=== PATIENT | female | born 1975 | race Caucasian/White ===

== ENCOUNTER 2016-10-22 08:02 | Emergency (ER) | payer MEDICAID ==
[2016-10-22] MEDS ORDERED: ONDANSETRON 4 MG TAB.RAPDIS PO ONE (08:47)
[2016-10-22] MEDS ORDERED: KETOROLAC TROMETHAMINE 30 MG/ML VIAL IM ONE (08:47)
[2016-10-22] MEDS ORDERED: diphenhydrAMINE HCL 50 MG/ML VIAL IM ONE (08:48)
--- OUTSIDE RECORDS SUMMARY | 2016-10-22 08:48 | XMS REPORT | Continuity of Care Document ---
:1975 Author Organization [facility] ([facility]) Address [address] [place] [address] Phone [phone] Care Team Providers Name Role Phone MarianaleiRefugio villarreal Primary Care Provider [phone] Source Comments This disclosure is being made pursuant to the Care Everywhere program, applicable federal and state laws, and may not contain all informaitonavailable regarding this patient.[facility] ([facility]) Active Allergies and Adverse Reactions Allergen Noted Date Severity Reactions Comments Amoxicillin 01/13/2012 Nausea & Vomiting,Rash Weeks Flavor 01/13/2012 Nausea & Vomiting Methylprednisone 01/13/2012 Other Non-Immunologic [place] like she was Reaction having a heart attack. Current Medications Prescription Sig. Disp. Refills Start Date End Date Status MEDROXYPROGESTERONE ACET inject Active (DEPO-PROVERA IM) intramuscularly. Every 3 months.Due to have dose on 01/14/12. albuterol 90 Use 2 Puffs by Active mcg/Actuation inhaler inhalation every 6 hours as needed HYDROcodone-acetaminophen Take 1 tablet by 15 tablet 0 03/22/2015 Active 5-325 mg per tablet mouth every 4 hours as needed Active Problems Problem Noted Date Right wrist pain 03/26/2015 Fracture of fifth metacarpal bone of right hand 03/08/2015 Closed displaced fracture of distal phalanx of right little finger 03/08/2015 Esotropia 02/27/2015 Overview: 3 surgeries as child (one eye then the other then back to first eye)- Done in [facility] Always has been ET 03/22/15 RMRc 1.5 mm LMRc 2.5 mm;Posterior fixation sutures [facility] Last Assessment & Plan: Well healed Better alignement She will call if problems worsen She will get readers for near Otherwise will f/u with local eye care Distal radius fracture 09/06/2014 Idiopathic intracranial hypertension 01/13/2012 Last Assessment & Plan: No current signs of raised intracranial pressure Headache(784.0) 01/13/2012 Social History Tobacco Use Types Packs/Day Years Used Date Never Smoker Smokeless Tobacco: Never Used Alcohol Use Drinks/Week oz/Week Comments Yes 2 Cans of beer Occasional Last Filed Vital Signs Vital Sign Reading Time Taken Blood Pressure 118/77 03/22/2015 2:59 PM CDT Pulse 82 03/22/2015 9:46 AM CDT Temperature 37 C (98.6 F) 03/22/2015 2:15 PM CDT Respiratory Rate 14 03/22/2015 2:59 PM CDT Height 1.6 m (5' 2.99") 03/12/2015 2:31 PM CDT Weight 94.3 kg (207 lb 14.3 oz) 03/22/2015 9:46 AM CDT Body Mass Index 36.84 03/22/2015 9:46 AM CDT Oxygen Saturation 95% 03/22/2015 2:59 PM CDT Plan of Care Health Maintenance Due Date Last Done Comments Hepatitis B Vaccine (1 of 3 - Primary Series) 1975 Tdap Vaccine 02/01/1988 Lipid Disorder Screening 1995 MMR Vaccine 1995 Td Vaccine 1995 Cervical Cancer Screening 2007 Influenza Vaccine: Seasonal (#1) 02/25/2016 Results from Last 3 Months Not on file
[2016-10-22] MEDS ORDERED: KETOROLAC TROMETHAMINE 60 MG/2 ML VIAL IM ONE (08:51)
[2016-10-22] MEDS ORDERED: diphenhydrAMINE HCL 50 MG/ML VIAL ONE (08:51)
--- NOTE | 2016-10-22 08:51 | ERNOTE ---
Headache ER HPI - General Presenting Symptoms: headache Time Seen by Provider: 10/22/16 08:44 Source: patient - Immun/Allergies/Home Medications Immunizations: IMMUNIZATION HX Immunizations Up to Date Yes History of Influenza Vaccine No Hx Pneumococcal Vaccination No Allergies/Adverse Reactions: Allergies callahan flavor Allergy (Severe, Verified 10/22/16 08:13) Vomiting prednisone Allergy (Severe, Verified 10/22/16 08:13) chest pain amoxicillin [Amoxicillin] Allergy (Verified 10/22/16 08:13) methylprednisolone Allergy (Verified 10/22/16 08:13) Home Medications: HOME MEDICATIONS Medroxyprogesterone Acetate [Depo-Provera] 400 mg IM Q30D 10/22/16 [Last Taken Unknown] - History of Present Illness Timing of Headache: gradual, constant Quality: Present: throbbing Severity Maximum: Present: severe Severity-Currently: Present: severe Headache frequency: Present: frequent headaches, similar to previous headache Modifying Factors - (Improves): Reports: medication Associated Symptoms: Reports: nausea Review of Systems - Review of Systems Constitutional: Present: See HPI EYE: Present: no symptoms reported ENT: Present: no symptoms reported Respiratory: Present: no symptoms reported Cardiology: Present: no symptoms reported Gastrointestinal/Abdominal: Present: nausea Genitourinary: Present: no symptoms reported Musculoskeletal: Present: no symptoms reported Skin: Present: no symptoms reported Neurological: Present: headache Endocrine: Present: no symptoms reported Hematologic/Lymphatic: Present: no symptoms reported Psych: Present: no symptoms reported - Patient's Past Medical History Patient History - Medical: Anxiety, Bipolar, Migraines Patient History - Cardiac/Respiratory: No pertinent hx Patient History - Cancer: No Hx of Cancer Patient History - Surgical Procedures: Appendectomy, Cholecystectomy, D & C, Other Patient History - Other: None - Social History Living Situations: home Abuse History: No History of abuse Psych History: Hx of Anxiety, Hx of Depression, Hx of Bipolar Disorder Smoking Status: Never smoker Have you smoked in the past 12 months: No Alcohol Use: occasionally Drug Use: none - Immunizations Immunizations Up to Date: Yes Hx Pneumococcal Vaccination: No History of Influenza Vaccine: No Physical Exam - Physical Exam General Appearance: Present: wd/wn, alert, moderate distress Eye Exam: Normal inspection: bilateral, PERRL: bilateral Ears, Nose, Throat: Present: normal ENT inspection, H, normal pharynx Neck: Present: normal inspection, nontender Respiratory: Present: no respiratory distress, normal breath sounds, no accessory muscle use, chest nontender, lungs clear Cardiovascular/Chest: Present: regular rate, rhythm, no murmur, normal peripheral pulses Gastrointestinal/Abdominal: Present: normal bowel sounds, nontender, nondistended, soft, no organomegaly Rectal Exam: Present: deferred Back Exam: Present: normal inspection, normal range of motion Extremity Exam: Present: normal inspection, non-tender, no edema, normal range of motion Neurological Exam: Present: alert, oriented, normal mood/affect Skin Exam: Present: normal color, warm/dry Lymphatic Exam: Present: no adenopathy ED Progress - Vital Signs Patient's Vital Signs:: I have reviewed the patient's vital signs. Vital Signs: Vital Signs 10/22/16 08:09 Temperature 36.9 C Pulse Rate 91 Respiratory 12 Rate Blood Pressure 141/90 O2 Sat by Pulse 98 Oximetry - Progress/Reassessment Chief Complaint: Headache Progress:: Improved Plan - Plan Plan: Patient did mention that she had a spinal tap at sometime in the past for headaches however 1 I discussed with her about the possibility of this being pseudotumor cerebri she was unclear as to that terminology. He did have some discussions regarding the possibility of using other verapamil or propranolol for prophylactic care and she will discuss this with her family physician. Departure Clinical Impression: Migraine aura, persistent, intractable - Departure Disposition: Home self-care Condition: Good Instructions: Recurrent Migraine Headache, [id number] Referrals: Mae Dietrich FNP [Primary Care Provider] -
[2016-10-22] MEDS ORDERED: ONDANSETRON 4 MG TAB.RAPDIS ONE (08:52)
[2016-10-22 11:32] VITALS: BP 146/102
== END 2016-10-22 11:32 | disposition home or self-care (01) ==
LOC: ER 08:02
DX: G43.519 Persistent migraine aura without cerebral infarction, intractable, without status migrainosus (principal)

== ENCOUNTER 2017-03-17 16:29 | Emergency (ER) | payer MEDICAID ==
[2017-03-17 17:02] VITALS: BP 117/83
[2017-03-17] MEDS ORDERED: KETOROLAC TROMETHAMINE 30 MG/ML VIAL IM ONE (17:12)
[2017-03-17] MEDS ORDERED: KETOROLAC TROMETHAMINE 30 MG/ML VIAL ONE (17:16)
[2017-03-17 17:31] LABS: Urine Bilirubin Negative (NEGATIVE); Urine Blood Negative /ul (NEGATIVE); Urine Ketone Negative (NEGATIVE); Urine Nitrite Negative (NEGATIVE); Urine Protein Negative (NEGATIVE); Urine Specific Gravity 1.015 SP.GR. (1.005-1.010); Urine Urobilinogen Normal (NORMAL); Urine pH 6.5 pH (5.0-7.0)
[2017-03-17 17:44] LABS: Urine Appearance Clear; Urine Color Yellow; Urine RBC None Seen /hpf (0-5); Urine WBC None Seen /hpf (0-5)
[2017-03-17 17:45] LABS: Urine Bacteria 1+
--- NOTE | 2017-03-17 18:08 | ERNOTE ---
Back Pain ER HPI Date of Service: 03/17/17 Presenting Symptoms: other - back pain Time Seen by Provider: 03/17/17 17:05 Source: patient Exam Limitations: no limitations Immunizations: IMMUNIZATION HX Immunizations Up to Date Yes History of Influenza Vaccine Yes Hx Pneumococcal Vaccination Yes Allergies/Adverse Reactions: Allergies callahan flavor Allergy (Severe, Verified 03/17/17 17:02) Vomiting prednisone Allergy (Severe, Verified 03/17/17 17:02) chest pain amoxicillin [Amoxicillin] Allergy (Verified 03/17/17 17:02) methylprednisolone Allergy (Verified 03/17/17 17:02) Home Medications: HOME MEDICATIONS Medroxyprogesterone Acetate [Depo-Provera] 400 mg IM Q30D 10/22/16 [Last Taken Unknown] Cyclobenzaprine HCl [Flexeril] 10 mg PO TID PRN #20 tab 03/17/17 [Last Taken Unknown] HYDROcodone/ACETAMINOPHEN [Shiro 5-325] 1 tab PO Q6H PRN #15 tab 03/17/17 [Last Taken Unknown] Narrative: Patient presents to the ED for low back pain. She relates chronic Sx since an accident when she was a teen. She relates that this pain is radiating across her low back right and left. No localizing midline pain. This is exactly like what she has had before but more intense. No fever. No acute N/T/W but occaionaaly she will have some tingling in her feet, not limited to this episode. No falls or trauma. She states the pain is spasm-like and it hurts for her to move and walk. She was walking slow today because of the pain. She did not lose bowel or bladder control but did urinate on herself because she could not get to the bathroom in time becase the pain in her back was slowing her down. No focal N/T/W. No other Sx. This is just liek prior back pains she has had. Going on for the last 2 days Timing: Reports: constant Quality/Severity: Reports: severe Location of pain: Reports: lower back, no radiation. Denies: radiating to rt thigh/leg, radiating to lf thigh/leg Possible Precipitating Factor: Denies: trauma Modifying Factors - (Improves): Reports: other - rest Modifying Factors - (Worsens): Reports: movement to right, movement to left, movement flexion Associated Symptoms: Denies: fever/chills, constipation/incontinence, nausea/ vomiting, problems urinating, numbess/weakness in legs Prior Treament: Denies: recently seen Review of Systems - Review of Systems Constitutional: Absent: fever Respiratory: Absent: shortness of breath Cardiology: Absent: chest pain Gastrointestinal/Abdominal: Absent: abdominal pain Neurological: Absent: weakness - Patient's Past Medical History Patient History - Medical: Anxiety, Bipolar, Migraines Patient History - Cardiac/Respiratory: No pertinent hx Patient History - Cancer: No Hx of Cancer Patient History - Surgical Procedures: Appendectomy, Cholecystectomy, D & C, Other Patient History - Other: None LMP (females 10-50): depo shot (3-4 years ago) - Social History Living Situations: home Abuse History: No History of abuse Psych History: Hx of Anxiety, Hx of Depression, Hx of Bipolar Disorder Smoking Status: Never smoker Alcohol Use: occasionally Drug Use: none - Immunizations Immunizations Up to Date: Yes Hx Pneumococcal Vaccination: Yes History of Influenza Vaccine: Yes Physical Exam - Physical Exam General Appearance: Present: alert, no apparent distress Head Exam: Present: normal inspection, no evidence of injury Eye Exam: Normal inspection: bilateral, PERRL: bilateral Ears, Nose, Throat: Present: normal ENT inspection Neck: Present: normal inspection, nontender Respiratory: Present: no respiratory distress, normal breath sounds, no accessory muscle use, lungs clear Cardiovascular/Chest: Present: regular rate, rhythm Gastrointestinal/Abdominal: Present: normal bowel sounds, nontender, soft Rectal Exam: Present: other - patient declines rectal exam, understands risks and benefits Back Exam: Present: normal inspection, no vertebral tenderness, muscle spasm, other - there is bilateral low back tendenress to palpation. This seems ot completely reproduce her pain suzanne palpation of the musculature. Absent: CVA tenderness (R), CVA tenderness (L), vertebral tenderness Extremity Exam: Present: normal inspection, non-tender, normal range of motion Neurological Exam: Present: alert, normal mood/affect, no motor/sensory deficits , other - Patellar tendon reflexes equal and symmetric, full LE stength. Full LE sensation. Gait stable. Clinically nothign to suggest neuro deficit or cauda equina syndrome Skin Exam: Present: normal color, warm/dry ED Progress - Results and Orders Patient's Lab Results:: I have reviewed the patient's lab results. - Vital Signs Patient's Vital Signs:: I have reviewed the patient's vital signs. Vital Signs: Vital Signs 03/17/17 16:50 Temperature 36.9 C Pulse Rate 94 Respiratory 15 Rate Blood Pressure 117/83 O2 Sat by Pulse 97 Oximetry - Progress/Reassessment Chief Complaint: Back Pain Progress Note-Subjective: 03/17/17 18:07 I find no indication or emergent imaging. Nothing to suggest cauda-equina syndrome or infectious process, she decliens rectal exam. She wishes to go home. I discussed warning signs and reasons to return as well as the need for close f/u. Departure Clinical Impression: Low back pain - Departure Disposition: Home self-care Condition: Stable Instructions: Back Pain, Adult, [id number] Additional Instructions: Rest. Fluids. No driving with pain medications. Return here if you change your mind about having the rectal exam, develop fever, loss of bowel or bladder control, numbness, tingling, weakness or if your condition worsens or changes in any way. Take Ibuprofen. Referrals: Mae Dietrich FNP [Primary Care Provider] - Prescriptions: Cyclobenzaprine HCl [Flexeril] 10 mg PO TID PRN #20 tab PRN Reason: MUSCLE SPASMS HYDROcodone/ACETAMINOPHEN [Shiro 5-325] 1 tab PO Q6H PRN #15 tab PRN Reason: Pain
== END 2017-03-17 18:00 | disposition home or self-care (01) ==
LOC: ER 16:29
DX: M54.5 Low back pain (principal)